=== PATIENT | male | born 1980 | race Caucasian/White ===

== ENCOUNTER 2017-02-22 10:35 | Inpatient (IN) | payer MEDICARE, OTHER ==
[2017-02-22] MEDS: SOD CHLORIDE 0.9% 1,000 ML IV (11:03)
[2017-02-22 11:17] LABS: ADD MAN DIFF? NO
[2017-02-22] MEDS: LEVETIRACETAM 1000 MG (PMX) 100 ML IVPB (11:34)
[2017-02-22 11:35] LABS: BASOPHILS % 0.2 % (0.0-2.0); EOSINOPHILS # 0.1 10^3/ul (0.0-0.5); HEMATOCRIT 38.9 % (42.0-52.0); HEMOGLOBIN 13.3 g/dl (14.0-18.0); LYMPHOCYTES # 2.5 10^3/ul (0.8-2.9); LYMPHOCYTES % 26.4 % (15.0-51.0); MEAN CORPUSCULAR HEMOGLOBIN 32.1 pg (29.0-33.0); MEAN CORPUSCULAR HGB CONC 34.2 g/dl (32.0-37.0); MEAN PLATELET VOLUME 11.5 fl (7.4-10.4); MONOCYTE # 0.9 10^3/ul (0.3-0.9); MONOCYTES % 9.7 % (0.0-11.0); NEUTROPHIL # 5.8 10^3/ul (1.6-7.5); NEUTROPHILS % 62.5 % (39.0-77.0); PLATELET COUNT 181 10^3/UL (140-415); RED BLOOD COUNT 4.14 10^6/ul (4.70-6.10); RED CELL DISTRIBUTION WIDTH 11.8 % (11.5-14.5)
[2017-02-22 11:35] LABS: WHITE BLOOD COUNT 9.3 10^3/ul (4.8-10.8)
[2017-02-22 11:47] LABS: ALANINE AMINOTRANSFERASE 75 IU/L (13-69); ALBUMIN 3.9 g/dl (3.3-4.9); ALBUMIN/GLOBULIN RATIO 1.39; ALKALINE PHOSPHATASE 109 IU/L (42-121); ANION GAP 12 (8-16); ASPARTATE AMINO TRANSFERASE 75 IU/L (15-46); BILIRUBIN,INDIRECT 0.3 mg/dl (0-1.1); BILIRUBIN,TOTAL 0.3 mg/dl (0.2-1.3); BLOOD UREA NITROGEN 13 mg/dl (7-20); CALCIUM 9.1 mg/dl (8.4-10.2); CARBON DIOXIDE 27 mmol/L (21-31); CHLORIDE 103 mmol/L (97-110); CREATININE 1.02 mg/dl (0.61-1.24); GLUCOSE 99 mg/dl (70-220); POTASSIUM 3.7 mmol/L (3.5-5.1); SODIUM 138 mmol/L (135-144); TOTAL PROTEIN 6.7 g/dl (6.1-8.1)
[2017-02-22] MEDS ORDERED: ACETAMINOPHEN 325 MG TAB PO ×2 (19:30→21:00)
[2017-02-22] MEDS ORDERED: ONDANSETRON 4 MG INJ IV ×2 (19:30→21:00)
[2017-02-22] MEDS: ONDANSETRON 4 MG INJ IV (19:52)
[2017-02-22] MEDS: DEXAMETHASONE 10 MG/ML 1 ML INJ IV (19:52)
[2017-02-22] MEDS: morphine 4 MG/ML VIAL IV (19:52)
[2017-02-22] MEDS ORDERED: NACL 0.9% 3 ML SYG IV (21:00)
[2017-02-22] MEDS: LORAZEPAM 2 MG INJ IV (21:00)
[2017-02-22 22:27] LABS: ETHANOL < 10.0 mg/dl
[2017-02-22] MEDS: LEVETIRACETAM 500 MG TAB PO ×2 (22:36→23:00)
[2017-02-22] MEDS ORDERED: LORAZEPAM 2 MG INJ IV (23:00)
[2017-02-23] MEDS: LEVETIRACETAM 500 MG TAB PO ×2 (00:27→21:54)
[2017-02-23] MEDS: DEXAMETHASONE 4 MG/ML 1 ML INJ IV ×4 (00:28→18:05)
[2017-02-23 01:26] LABS: HAAIG REFLEX REFLEX FILED
[2017-02-23 02:04] LABS: ADD UMIC NO; UR ASCORBIC ACID 20 mg/dL (NEGATIVE); UR BACTERIA FEW /HPF (NONE SEEN); UR BILIRUBIN (Dip) NEGATIVE (NEGATIVE); UR BLOOD (Dip) NEGATIVE (NEGATIVE); UR CLARITY SLIGHTLY CLOUDY (CLEAR); UR COLOR YELLOW (YELLOW); UR GLUCOSE (Dip) NEGATIVE (NEGATIVE); UR KETONES (Dip) NEGATIVE (NEGATIVE); UR LEUKOCYTE ESTERASE (Dip) NEGATIVE Leu/ul (NEGATIVE); UR NITRITE (Dip) NEGATIVE (NEGATIVE); UR RBC 0 /HPF (0-5); UR SPECIFIC GRAVITY (Dip) 1.016 (1.003-1.030); UR TOTAL PROTEIN (Dip) NEGATIVE (NEGATIVE); UR UROBILINOGEN (Dip) NEGATIVE (NEGATIVE); UR WBC 0 /HPF (0-5)
[2017-02-23 03:31] LABS: CANNABINOIDS Negative (NEGATIVE); OPIATES Positive (NEGATIVE)
[2017-02-23 03:48] LABS: BARBITURATES Negative (NEGATIVE); BENZODIAZEPINES Positive (NEGATIVE); COCAINE Negative (NEGATIVE)
[2017-02-23 04:43] LABS: HEPATITIS B SURFACE ANTIGEN NEGATIVE (NEGATIVE)
[2017-02-23 05:01] LABS: HEPATITIS B SURFACE ANTIBODY NEGATIVE (NEGATIVE)
[2017-02-23 05:01] LABS: HEPATITIS B CORE ANTIBODY NEGATIVE (NEGATIVE); HEPATITIS C VIRAL ANTIBODY NEGATIVE (NEGATIVE)
[2017-02-23 05:05] LABS: AMPHETAMINE/METHAMPHETAMINE POSITIVE (NEGATIVE)
[2017-02-23] MEDS: PANTOPRAZOLE (EC) 40 MG TAB PO (06:38)
[2017-02-23 07:20] LABS: ADD MAN DIFF? NO
[2017-02-23 07:23] LABS: HEMATOCRIT 43.4 % (42.0-52.0); HEMOGLOBIN 14.3 g/dl (14.0-18.0); LYMPHOCYTES # 0.7 10^3/ul (0.8-2.9); LYMPHOCYTES % 11.3 % (15.0-51.0); MEAN CORPUSCULAR HEMOGLOBIN 31.2 pg (29.0-33.0); MEAN CORPUSCULAR HGB CONC 32.9 g/dl (32.0-37.0); MEAN CORPUSCULAR VOLUME 94.8 fl (82.0-101.0); MEAN PLATELET VOLUME 11.1 fl (7.4-10.4); MONOCYTE # 0.1 10^3/ul (0.3-0.9); MONOCYTES % 1.8 % (0.0-11.0); NEUTROPHIL # 5.4 10^3/ul (1.6-7.5); NEUTROPHILS % 86.6 % (39.0-77.0); PLATELET COUNT 187 10^3/UL (140-415); RED BLOOD COUNT 4.58 10^6/ul (4.70-6.10); RED CELL DISTRIBUTION WIDTH 11.6 % (11.5-14.5)
[2017-02-23 07:23] LABS: WHITE BLOOD COUNT 6.2 10^3/ul (4.8-10.8)
[2017-02-23 07:32] LABS: HEMOGLOBIN A1C 5.3 % (0-5.9)
[2017-02-23 07:38] LABS: ALANINE AMINOTRANSFERASE 67 IU/L (13-69); ALBUMIN 3.7 g/dl (3.3-4.9); ALBUMIN/GLOBULIN RATIO 1.42; ALKALINE PHOSPHATASE 63 IU/L (42-121); ANION GAP 14 (8-16); ASPARTATE AMINO TRANSFERASE 52 IU/L (15-46); BILIRUBIN,INDIRECT 0.7 mg/dl (0-1.1); BILIRUBIN,TOTAL 0.7 mg/dl (0.2-1.3); BLOOD UREA NITROGEN 10 mg/dl (7-20); CALCIUM 8.5 mg/dl (8.4-10.2); CARBON DIOXIDE 25 mmol/L (21-31); CHLORIDE 104 mmol/L (97-110); CHOLESTEROL 160 mg/dl (100-200); CREATININE 0.88 mg/dl (0.61-1.24); GLUCOSE 127 mg/dl (70-220); HDL CHOLESTEROL 52 mg/dl (28-63); LDL CHOLESTEROL,CALCULATED 102 mg/dl; MAGNESIUM 1.7 mg/dl (1.7-2.5); POTASSIUM 4.6 mmol/L (3.5-5.1); SODIUM 138 mmol/L (135-144); TOTAL PROTEIN 6.3 g/dl (6.1-8.1); TRIGLYCERIDES 32 mg/dl (0-149)
[2017-02-23] MEDS: MULTIVITAMINS 10 ML, THIAMINE 100 MG, FOLIC ACID 1 MG in SOD CHLORIDE 0.9% 1,000 ML IVPB (10:14)
[2017-02-23 12:19] LABS: THYROID STIMULATING HORMONE 0.272 MIU/L (0.465-4.680)
[2017-02-23 16:21] LABS: T4 (THYROXINE) 7.4 ug/dl (5.5-11.0)
[2017-02-23 17:36] LABS: FREE T4 (FREE THYROXINE) 1.02 ng/dl (0.79-2.35)
[2017-02-24] MEDS: DEXAMETHASONE 4 MG/ML 1 ML INJ IV ×4 (00:19→18:18)
[2017-02-24] MEDS: FOLIC ACID 1 MG TAB PO (08:54)
[2017-02-24] MEDS: MULTIVITAMINS THERAPEUTIC TAB PO (08:54)
[2017-02-24] MEDS: THIAMINE 100 MG TAB PO (08:54)
[2017-02-24] MEDS: LEVETIRACETAM 500 MG TAB PO ×2 (08:54→21:11)
[2017-02-24] MEDS: morphine 2 MG INJ IV ×2 (08:54→17:49)
[2017-02-24] MEDS: INFLUENZA VIRUS VACCINE 0.5 ML (DISPENSING) IM* (09:01)
[2017-02-25] MEDS: DEXAMETHASONE 4 MG/ML 1 ML INJ IV ×4 (00:16→17:28)
[2017-02-25] MEDS: FOLIC ACID 1 MG TAB PO (08:51)
[2017-02-25] MEDS: LEVETIRACETAM 500 MG TAB PO ×2 (08:51→21:30)
[2017-02-25] MEDS: MULTIVITAMINS THERAPEUTIC TAB PO (08:51)
[2017-02-25] MEDS: THIAMINE 100 MG TAB PO (08:52)
[2017-02-25] MEDS: morphine 2 MG INJ IV (16:12)
[2017-02-26] MEDS: DEXAMETHASONE 4 MG/ML 1 ML INJ IV ×4 (00:06→17:37)
[2017-02-26] MEDS: morphine 2 MG INJ IV (01:13)
[2017-02-26] MEDS: LEVETIRACETAM 500 MG TAB PO ×2 (09:14→21:00)
[2017-02-26] MEDS: MULTIVITAMINS THERAPEUTIC TAB PO (09:14)
[2017-02-26] MEDS: FOLIC ACID 1 MG TAB PO (09:14)
[2017-02-26] MEDS: THIAMINE 100 MG TAB PO (09:17)
[2017-02-26 16:40] LABS: INR 0.94; PARTIAL THROMBOPLASTIN TIME 23.8 Sec (25.0-35.0); PROTIME 12.7 Sec (11.9-14.9)
[2017-02-26] MEDS ORDERED: THROMBIN 5000 UNIT VIAL (19:24)
[2017-02-26] MEDS ORDERED: LIDOCAINE 0.5% (MDV) 50 ML INJ (19:24)
[2017-02-26] MEDS ORDERED: MIDAZOLAM 1 MG/ML 2 ML INJ (20:07)
[2017-02-26] MEDS: LIDOCAINE 1%/EPI 30 ML INJ (22:04)
[2017-02-26] MEDS: BACITRACIN 50000 UNITS INJ (22:04)
[2017-02-26] MEDS ORDERED: PROPOFOL 20 ML (23:55)
[2017-02-26] MEDS ORDERED: ROCURONIUM 50 MG INJ (23:55)
[2017-02-26] MEDS ORDERED: NEOSTIGMINE 3 MG/3 ML SYRINGE (23:55)
[2017-02-26] MEDS ORDERED: ONDANSETRON 4 MG INJ (23:55)
[2017-02-26] MEDS ORDERED: GLYCOPYRROLATE 0.4 MG INJ (23:55)
[2017-02-26] MEDS ORDERED: LIDOCAINE 100 MG SYRINGE (23:55)
[2017-02-26] MEDS ORDERED: CEFAZOLIN 1 GM INJ (23:55)
[2017-02-27] MEDS ORDERED: MEPERIDINE 100 MG INJ (00:10)
[2017-02-27] MEDS ORDERED: FENTAnyl 50 MCG/ML VIAL IV (00:30)
[2017-02-27] MEDS ORDERED: METOCLOPRAMIDE 10 MG INJ IV (00:30)
[2017-02-27] MEDS ORDERED: DIPHENHYDRAMINE 50 MG INJ IV (00:30)
[2017-02-27] MEDS ORDERED: ONDANSETRON 4 MG INJ IV (00:30)
[2017-02-27] MEDS ORDERED: HYDROmorphONE (0.2 MG/ML) 10ML SYG IV ×2 (00:30)
[2017-02-27] MEDS: DEXAMETHASONE 4 MG/ML 1 ML INJ IV ×6 (01:59→23:54)
[2017-02-27 05:19] LABS: ADD MAN DIFF? NO
[2017-02-27 05:24] LABS: WHITE BLOOD COUNT 17.9 10^3/ul (4.8-10.8)
[2017-02-27 05:24] LABS: ABNORMAL IP MESSAGE 1; BASOPHILS % 0.1 % (0.0-2.0); EOSINOPHILS % 0.1 % (0.0-7.0); HEMATOCRIT 39.7 % (42.0-52.0); HEMOGLOBIN 13.2 g/dl (14.0-18.0); LYMPHOCYTES # 1.5 10^3/ul (0.8-2.9); LYMPHOCYTES % 8.5 % (15.0-51.0); MEAN CORPUSCULAR HEMOGLOBIN 31.9 pg (29.0-33.0); MEAN CORPUSCULAR HGB CONC 33.2 g/dl (32.0-37.0); MEAN CORPUSCULAR VOLUME 95.9 fl (82.0-101.0); MEAN PLATELET VOLUME 11.3 fl (7.4-10.4); MONOCYTE # 1.7 10^3/ul (0.3-0.9); MONOCYTES % 9.7 % (0.0-11.0); NEUTROPHIL # 14.5 10^3/ul (1.6-7.5); PLATELET COUNT 153 10^3/UL (140-415); POSITIVE DIFF @See below; RED BLOOD COUNT 4.14 10^6/ul (4.70-6.10); RED CELL DISTRIBUTION WIDTH 11.9 % (11.5-14.5)
[2017-02-27 05:43] LABS: INR 0.98; PROTIME 13.1 Sec (11.9-14.9)
[2017-02-27 05:49] LABS: ALANINE AMINOTRANSFERASE 52 IU/L (13-69); ALBUMIN 3.4 g/dl (3.3-4.9); ALKALINE PHOSPHATASE 45 IU/L (42-121); ANION GAP 13 (8-16); ASPARTATE AMINO TRANSFERASE 25 IU/L (15-46); BILIRUBIN,INDIRECT 0.2 mg/dl (0-1.1); BILIRUBIN,TOTAL 0.2 mg/dl (0.2-1.3); BLOOD UREA NITROGEN 18 mg/dl (7-20); CALCIUM 8.1 mg/dl (8.4-10.2); CARBON DIOXIDE 29 mmol/L (21-31); CHLORIDE 102 mmol/L (97-110); CREATININE 0.98 mg/dl (0.61-1.24); GLUCOSE 102 mg/dl (70-220); POTASSIUM 4.3 mmol/L (3.5-5.1); SODIUM 140 mmol/L (135-144)
[2017-02-27] MEDS: LEVETIRACETAM 500 MG TAB PO ×2 (09:18→21:57)
[2017-02-27] MEDS: FOLIC ACID 1 MG TAB PO (09:19)
[2017-02-27] MEDS: MULTIVITAMINS THERAPEUTIC TAB PO (09:19)
[2017-02-27] MEDS: THIAMINE 100 MG TAB PO (09:20)
[2017-02-27] MEDS: DOCUSATE SODIUM 100 MG CAP PO (21:58)
[2017-02-27] MEDS: BISACODYL (EC) 5 MG TAB PO (21:58)
[2017-02-28 05:12] LABS: ADD MAN DIFF? NO
[2017-02-28 05:19] LABS: WHITE BLOOD COUNT 16.8 10^3/ul (4.8-10.8)
[2017-02-28 05:19] LABS: ABNORMAL IP MESSAGE 1; BASOPHILS % 0.1 % (0.0-2.0); HEMATOCRIT 39.1 % (42.0-52.0); HEMOGLOBIN 13.3 g/dl (14.0-18.0); LYMPHOCYTES # 1.9 10^3/ul (0.8-2.9); MEAN CORPUSCULAR HEMOGLOBIN 32.3 pg (29.0-33.0); MEAN CORPUSCULAR VOLUME 94.9 fl (82.0-101.0); MEAN PLATELET VOLUME 12.1 fl (7.4-10.4); MONOCYTE # 1.6 10^3/ul (0.3-0.9); MONOCYTES % 9.3 % (0.0-11.0); NEUTROPHIL # 13.2 10^3/ul (1.6-7.5); NEUTROPHILS % 78.8 % (39.0-77.0); PLATELET COUNT 151 10^3/UL (140-415); POSITIVE DIFF @See below; RED BLOOD COUNT 4.12 10^6/ul (4.70-6.10); RED CELL DISTRIBUTION WIDTH 11.7 % (11.5-14.5)
[2017-02-28 05:46] LABS: INR 0.93; PARTIAL THROMBOPLASTIN TIME 24.1 Sec (25.0-35.0); PROTIME 12.6 Sec (11.9-14.9)
[2017-02-28 06:09] LABS: ALANINE AMINOTRANSFERASE 69 IU/L (13-69); ALBUMIN 3.4 g/dl (3.3-4.9); ALBUMIN/GLOBULIN RATIO 1.17; ALKALINE PHOSPHATASE 62 IU/L (42-121); ANION GAP 11 (8-16); ASPARTATE AMINO TRANSFERASE 38 IU/L (15-46); BILIRUBIN,INDIRECT 0.1 mg/dl (0-1.1); BILIRUBIN,TOTAL 0.1 mg/dl (0.2-1.3); BLOOD UREA NITROGEN 17 mg/dl (7-20); CALCIUM 8.6 mg/dl (8.4-10.2); CARBON DIOXIDE 29 mmol/L (21-31); CHLORIDE 102 mmol/L (97-110); GLUCOSE 114 mg/dl (70-220); POTASSIUM 3.9 mmol/L (3.5-5.1); SODIUM 138 mmol/L (135-144); TOTAL PROTEIN 6.3 g/dl (6.1-8.1)
[2017-02-28] MEDS: DEXAMETHASONE 4 MG/ML 1 ML INJ IV ×4 (06:22→23:43)
[2017-02-28] MEDS: THIAMINE 100 MG TAB PO (09:00)
[2017-02-28] MEDS: LEVETIRACETAM 500 MG TAB PO ×2 (10:09→21:15)
[2017-02-28] MEDS: MULTIVITAMINS THERAPEUTIC TAB PO (10:09)
[2017-02-28] MEDS: FOLIC ACID 1 MG TAB PO (10:10)
[2017-02-28] MEDS: BISACODYL (EC) 5 MG TAB PO (21:15)
[2017-03-01] MEDS: DEXAMETHASONE 4 MG/ML 1 ML INJ IV ×4 (06:48→23:37)
[2017-03-01] MEDS: THIAMINE 100 MG TAB PO (08:38)
[2017-03-01] MEDS: FOLIC ACID 1 MG TAB PO (08:38)
[2017-03-01] MEDS: LEVETIRACETAM 500 MG TAB PO ×2 (08:38→20:26)
[2017-03-01] MEDS: MULTIVITAMINS THERAPEUTIC TAB PO (08:38)
[2017-03-01] MEDS: morphine 4 MG/ML VIAL IV ×3 (08:42→17:21)
[2017-03-01] MEDS: DOCUSATE SODIUM 100 MG CAP PO (15:48)
[2017-03-01] MEDS: BISACODYL (EC) 5 MG TAB PO (15:48)
[2017-03-01] MEDS ORDERED: LACTULOSE 30ML CUP PO (16:30)
[2017-03-01] MEDS: NYSTATIN SUSP 5 ML CUP PO ×2 (17:17→20:26)
[2017-03-01] MEDS: NEOMYC/POLYMYX/BACIT 30 GM OINT TOP (20:26)
[2017-03-02] MEDS: DEXAMETHASONE 4 MG/ML 1 ML INJ IV ×3 (05:39→17:46)
[2017-03-02] MEDS: FOLIC ACID 1 MG TAB PO (09:16)
[2017-03-02] MEDS: MULTIVITAMINS THERAPEUTIC TAB PO (09:16)
[2017-03-02] MEDS: NYSTATIN SUSP 5 ML CUP PO ×4 (09:16→20:46)
[2017-03-02] MEDS: LEVETIRACETAM 500 MG TAB PO ×2 (09:16→20:46)
[2017-03-02] MEDS: THIAMINE 100 MG TAB PO (09:17)
[2017-03-02] MEDS: NEOMYC/POLYMYX/BACIT 30 GM OINT TOP ×3 (09:17→20:47)
[2017-03-03] MEDS: DEXAMETHASONE 4 MG/ML 1 ML INJ IV ×3 (00:11→11:13)
[2017-03-03] MEDS: NEOMYC/POLYMYX/BACIT 30 GM OINT TOP ×3 (08:55→21:01)
[2017-03-03] MEDS: FOLIC ACID 1 MG TAB PO (08:55)
[2017-03-03] MEDS: THIAMINE 100 MG TAB PO (08:55)
[2017-03-03] MEDS: LEVETIRACETAM 500 MG TAB PO ×2 (08:55→21:00)
[2017-03-03] MEDS: MULTIVITAMINS THERAPEUTIC TAB PO (08:55)
[2017-03-03] MEDS: NYSTATIN SUSP 5 ML CUP PO ×4 (11:13→21:01)
[2017-03-03] MEDS: POLYETHYLENE GLYCOL 17 GM PACKET PO (14:09)
[2017-03-03] MEDS: DOCUSATE SODIUM 100 MG CAP PO (21:00)
[2017-03-04 06:18] LABS: ADD MAN DIFF? NO
[2017-03-04 06:43] LABS: WHITE BLOOD COUNT 19.1 10^3/ul (4.8-10.8)
[2017-03-04 06:43] LABS: ABNORMAL IP MESSAGE 1; BASOPHILS % 0.2 % (0.0-2.0); EOSINOPHILS # 0.1 10^3/ul (0.0-0.5); EOSINOPHILS % 0.3 % (0.0-7.0); HEMATOCRIT 41.8 % (42.0-52.0); HEMOGLOBIN 13.9 g/dl (14.0-18.0); LYMPHOCYTES # 2.7 10^3/ul (0.8-2.9); MEAN CORPUSCULAR HEMOGLOBIN 31.8 pg (29.0-33.0); MEAN CORPUSCULAR HGB CONC 33.3 g/dl (32.0-37.0); MEAN CORPUSCULAR VOLUME 95.7 fl (82.0-101.0); MEAN PLATELET VOLUME 12.2 fl (7.4-10.4); MONOCYTE # 2.3 10^3/ul (0.3-0.9); MONOCYTES % 11.9 % (0.0-11.0); NEUTROPHIL # 13.7 10^3/ul (1.6-7.5); NEUTROPHILS % 71.3 % (39.0-77.0); PLATELET COUNT 169 10^3/UL (140-415); POSITIVE DIFF @See below; RED BLOOD COUNT 4.37 10^6/ul (4.70-6.10); RED CELL DISTRIBUTION WIDTH 11.9 % (11.5-14.5)
[2017-03-04 06:57] LABS: ANION GAP 12 (8-16); BLOOD UREA NITROGEN 20 mg/dl (7-20); CALCIUM 8.4 mg/dl (8.4-10.2); CARBON DIOXIDE 27 mmol/L (21-31); CHLORIDE 103 mmol/L (97-110); CREATININE 0.95 mg/dl (0.61-1.24); GLUCOSE 95 mg/dl (70-220); SODIUM 138 mmol/L (135-144)
[2017-03-04] MEDS: POLYETHYLENE GLYCOL 17 GM PACKET PO (09:01)
[2017-03-04] MEDS: LEVETIRACETAM 500 MG TAB PO ×2 (09:01→20:56)
[2017-03-04] MEDS: NYSTATIN SUSP 5 ML CUP PO ×4 (09:01→20:56)
[2017-03-04] MEDS: THIAMINE 100 MG TAB PO (09:01)
[2017-03-04] MEDS: NEOMYC/POLYMYX/BACIT 30 GM OINT TOP ×2 (09:01→12:33)
[2017-03-04] MEDS: MULTIVITAMINS THERAPEUTIC TAB PO (09:01)
[2017-03-04] MEDS: DOCUSATE SODIUM 100 MG CAP PO ×2 (09:01→20:56)
[2017-03-04] MEDS: FOLIC ACID 1 MG TAB PO (09:01)
[2017-03-05] MEDS: LEVETIRACETAM 500 MG TAB PO ×2 (08:24→20:11)
[2017-03-05] MEDS: DOCUSATE SODIUM 100 MG CAP PO ×2 (08:24→20:11)
[2017-03-05] MEDS: MULTIVITAMINS THERAPEUTIC TAB PO (08:24)
[2017-03-05] MEDS: FOLIC ACID 1 MG TAB PO (08:24)
[2017-03-05] MEDS: NYSTATIN SUSP 5 ML CUP PO ×4 (08:25→20:11)
[2017-03-05] MEDS: POLYETHYLENE GLYCOL 17 GM PACKET PO (08:25)
[2017-03-05] MEDS: THIAMINE 100 MG TAB PO (08:27)
[2017-03-06] MEDS: FOLIC ACID 1 MG TAB PO (08:17)
[2017-03-06] MEDS: DOCUSATE SODIUM 100 MG CAP PO ×2 (08:17→21:34)
[2017-03-06] MEDS: THIAMINE 100 MG TAB PO (08:17)
[2017-03-06] MEDS: MULTIVITAMINS THERAPEUTIC TAB PO (08:17)
[2017-03-06] MEDS: NYSTATIN SUSP 5 ML CUP PO ×4 (08:17→21:34)
[2017-03-06] MEDS: LEVETIRACETAM 500 MG TAB PO ×2 (08:18→21:34)
[2017-03-06] MEDS: POLYETHYLENE GLYCOL 17 GM PACKET PO (08:18)
[2017-03-06] MEDS: IBUPROFEN 400 MG TAB PO (21:38)
[2017-03-07] MEDS: FOLIC ACID 1 MG TAB PO (09:15)
[2017-03-07] MEDS: DOCUSATE SODIUM 100 MG CAP PO ×2 (09:15→20:53)
[2017-03-07] MEDS: LEVETIRACETAM 500 MG TAB PO ×2 (09:15→20:53)
[2017-03-07] MEDS: MULTIVITAMINS THERAPEUTIC TAB PO (09:15)
[2017-03-07] MEDS: NYSTATIN SUSP 5 ML CUP PO ×4 (09:15→20:53)
[2017-03-07] MEDS: THIAMINE 100 MG TAB PO (09:15)
[2017-03-07] MEDS: POLYETHYLENE GLYCOL 17 GM PACKET PO (09:15)
[2017-03-08] MEDS: LEVETIRACETAM 500 MG TAB PO ×2 (08:49→20:12)
[2017-03-08] MEDS: FOLIC ACID 1 MG TAB PO (08:50)
[2017-03-08] MEDS: MULTIVITAMINS THERAPEUTIC TAB PO (08:50)
[2017-03-08] MEDS: POLYETHYLENE GLYCOL 17 GM PACKET PO (08:50)
[2017-03-08] MEDS: THIAMINE 100 MG TAB PO (08:50)
[2017-03-08] MEDS: DOCUSATE SODIUM 100 MG CAP PO ×2 (08:50→20:12)
[2017-03-08] MEDS: NYSTATIN SUSP 5 ML CUP PO ×2 (08:50→13:21)
[2017-03-09] MEDS: LEVETIRACETAM 500 MG TAB PO ×2 (08:21→21:08)
[2017-03-09] MEDS: THIAMINE 100 MG TAB PO (08:21)
[2017-03-09] MEDS: DOCUSATE SODIUM 100 MG CAP PO ×2 (08:22→21:00)
[2017-03-09] MEDS: MULTIVITAMINS THERAPEUTIC TAB PO (08:22)
[2017-03-09] MEDS: POLYETHYLENE GLYCOL 17 GM PACKET PO (08:22)
[2017-03-09] MEDS: FOLIC ACID 1 MG TAB PO (08:22)
[2017-03-10] MEDS: DOCUSATE SODIUM 100 MG CAP PO ×2 (09:00→20:55)
[2017-03-10] MEDS: POLYETHYLENE GLYCOL 17 GM PACKET PO (09:00)
[2017-03-10] MEDS: MULTIVITAMINS THERAPEUTIC TAB PO (09:16)
[2017-03-10] MEDS: THIAMINE 100 MG TAB PO (09:16)
[2017-03-10] MEDS: LEVETIRACETAM 500 MG TAB PO ×2 (09:16→20:55)
[2017-03-10] MEDS: FOLIC ACID 1 MG TAB PO (09:16)
[2017-03-11] MEDS: POLYETHYLENE GLYCOL 17 GM PACKET PO (09:00)
[2017-03-11] MEDS: DOCUSATE SODIUM 100 MG CAP PO ×2 (09:00→21:00)
[2017-03-11] MEDS: THIAMINE 100 MG TAB PO (09:06)
[2017-03-11] MEDS: MULTIVITAMINS THERAPEUTIC TAB PO (09:06)
[2017-03-11] MEDS: LEVETIRACETAM 500 MG TAB PO ×2 (09:06→21:24)
[2017-03-11] MEDS: FOLIC ACID 1 MG TAB PO (09:06)
[2017-03-12 05:26] LABS: ADD MAN DIFF? NO
[2017-03-12 05:34] LABS: BASOPHILS % 0.3 % (0.0-2.0); EOSINOPHILS # 0.1 10^3/ul (0.0-0.5); EOSINOPHILS % 1.3 % (0.0-7.0); HEMATOCRIT 41.5 % (42.0-52.0); HEMOGLOBIN 13.4 g/dl (14.0-18.0); LYMPHOCYTES # 2.2 10^3/ul (0.8-2.9); LYMPHOCYTES % 28.6 % (15.0-51.0); MEAN CORPUSCULAR HEMOGLOBIN 31.8 pg (29.0-33.0); MEAN CORPUSCULAR HGB CONC 32.3 g/dl (32.0-37.0); MEAN CORPUSCULAR VOLUME 98.3 fl (82.0-101.0); MEAN PLATELET VOLUME 10.7 fl (7.4-10.4); MONOCYTE # 0.8 10^3/ul (0.3-0.9); MONOCYTES % 10.9 % (0.0-11.0); NEUTROPHIL # 4.4 10^3/ul (1.6-7.5); NEUTROPHILS % 58.2 % (39.0-77.0); PLATELET COUNT 161 10^3/UL (140-415); RED BLOOD COUNT 4.22 10^6/ul (4.70-6.10); RED CELL DISTRIBUTION WIDTH 12.2 % (11.5-14.5)
[2017-03-12 05:34] LABS: WHITE BLOOD COUNT 7.6 10^3/ul (4.8-10.8)
[2017-03-12 06:08] LABS: ANION GAP 12 (8-16); BLOOD UREA NITROGEN 14 mg/dl (7-20); CALCIUM 8.7 mg/dl (8.4-10.2); CARBON DIOXIDE 24 mmol/L (21-31); CHLORIDE 108 mmol/L (97-110); CREATININE 1.03 mg/dl (0.61-1.24); GLUCOSE 99 mg/dl (70-220); POTASSIUM 4.2 mmol/L (3.5-5.1); SODIUM 140 mmol/L (135-144)
[2017-03-12] MEDS: DOCUSATE SODIUM 100 MG CAP PO (08:29)
[2017-03-12] MEDS: MULTIVITAMINS THERAPEUTIC TAB PO (08:29)
[2017-03-12] MEDS: THIAMINE 100 MG TAB PO (08:30)
[2017-03-12] MEDS: FOLIC ACID 1 MG TAB PO (08:30)
[2017-03-12] MEDS: LEVETIRACETAM 500 MG TAB PO (08:30)
[2017-03-12] MEDS: POLYETHYLENE GLYCOL 17 GM PACKET PO (09:00)
== END 2017-03-12 19:50 | DRG 472 ==
LOC: E/R 10:35 → MS1 02-24 09:44 → TEL 19:04
PROC: 0RB30ZZ Excision of Cervical Vertebral Disc, Open Approach (ICD-10-PCS; principal; 2017-02-26 00:12)
PROC: 0RG20A0 Fusion of 2 or more Cervical Vertebral Joints with Interbody Fusion Device, Anterior Approach, Anterior Column, Open Approach (ICD-10-PCS; 2017-02-26 00:12)
PROC: 4A11X4G Monitoring of Peripheral Nervous Electrical Activity, Intraoperative, External Approach (ICD-10-PCS; 2017-02-26 00:12)
DX: M50.01 Cervical disc disorder with myelopathy, high cervical region (principal); B37.0 Candidal stomatitis; G83.82 Anterior cord syndrome; M48.02 Spinal stenosis, cervical region; F19.90 Other psychoactive substance use, unspecified, uncomplicated; G40.909 Epilepsy, unspecified, not intractable, without status epilepticus; Z72.89 Other problems related to lifestyle; F19.10 Other psychoactive substance abuse, uncomplicated; K59.00 Constipation, unspecified; F32.9 Major depressive disorder, single episode, unspecified; L98.8 Other specified disorders of the skin and subcutaneous tissue
CPT/HCPCS: 70450; 70551; 70553; 72020; 72125; 72141; 73030-50; 76705; 80048; 80053; 80061; 80306; 80307; 81001; 81003; 83036; 83735; 84436; 84439; 84443; 85025; 85610; 85730; 86704; 86706; 86708; 86709; 86803; 87340; 88304; 90686; 96374; 96375; 97003; 97110; 97116; 97163; 97167; 97530; 97535; 99285-25